=== PATIENT | male | born 1980 | race Caucasian/White ===

== ENCOUNTER 2017-10-06 02:08 | Emergency (ER) | payer SELFPAY ==
[2017-10-06] MEDS ORDERED: TETANUS AND DIPHTHERIA TOXOID 0.5 ML DISP.SYRIN IM ONE (02:32)
--- NOTE | 2017-10-06 02:32 | PDOC ---
History of Present Illness - General Stated Complaint: INJURY,LT HAND History Source: Patient Exam Limitations: No Limitations - History of Present Illness Initial Comments: 10/06/17 02:31 36-year-old male who is right hand dominant with no medical history presents to the emergency department complaining of a laceration to his left palm after he slipped and fell onto the outstretched of his left hand. Bleeding controlled with direct pressure. Patient denies extremity numbness or tingling sensation. Patient denies head injuries, neck/back pains. Patient denies any other injuries or complaints. Unknown last tetanus. Timing/Duration: other Past History - Past Medical History Allergies/Adverse Reactions: Allergies Allergy/AdvReac Type Severity Reaction Status Date / Time No Known Allergies Allergy Verified 10/06/17 02:43 *Physical Exam - Physical Exam Comments: 10/06/17 02:28 Left hand 3cm vertical partial thickness thenar laceration 2 Point discrimination intact cap refill <2sec F.R.O.M. Wrist: 2 radial Procedure: Left hand 3cm vertical partial thickness Betadine prep 1% lidocaine=4cc NS irrigation/copious (4) 5.0 nylon interrupted/simple bacitracin telfa Kerlix *DC/Admit/Observation/Transfer Diagnosis at time of Disposition: Hand laceration Qualifiers: Encounter type: initial encounter Foreign body presence: without foreign body Laterality: left Qualified Code(s): S61.412A - Laceration without foreign body of left hand, initial encounter - Discharge Dispostion Disposition: HOME Condition at time of disposition: Stable Admit: No - Referrals - Patient Instructions Printed Discharge Instructions: DI for Laceration Repair Additional Instructions: Keep the incision clean and dry for 24 hours. After 24 hours, you may allow the soap and water to rinse off your incision. Avoid direct pressure of the water to the incision. Pat the incision dry with a clean clothe. Apply a small amount of bacitracin onto the incision. Cover the incision loosely with a bandaid. Take tylenol/motrin as needed for pain. Follow up with your physician or the ER in 48 hours for a wound check. Return to the ER if you notice red streaks, increase redness/swelling/severe pain to the incision. Suture removal in 11-12 days. - Post Discharge Activity
[2017-10-06] MEDS ORDERED: LIDOCAINE HCL 2% (20ML MULTI-DOSE VIAL) NR ONE (02:44)
[2017-10-06 02:45] VITALS: BP 128/93; PULSE 61; TEMP 98; BMI 30.1
--- NOTE | 2017-10-06 03:28 | PDOC ---
*Physical Exam - Vital Signs Last Vital Signs Temp Pulse Resp BP Pulse Ox 98 F 61 14 128/93 97 10/06/17 02:44 10/06/17 02:44 10/06/17 02:44 10/06/17 02:44 10/06/17 02:44 Medical Decision Making - Medical Decision Making 10/06/17 03:28 Pt seen by the Advanced Practice Provider under my direct supervision Ancillary studies reviewed I agree with plan as outlined by the Advanced Practice Provider GURPREET Burgess *DC/Admit/Observation/Transfer Diagnosis at time of Disposition: Hand laceration Qualifiers: Encounter type: initial encounter Foreign body presence: without foreign body Laterality: left Qualified Code(s): S61.412A - Laceration without foreign body of left hand, initial encounter - Discharge Dispostion Disposition: HOME Condition at time of disposition: Stable - Referrals - Patient Instructions Printed Discharge Instructions: DI for Laceration Repair Additional Instructions: Keep the incision clean and dry for 24 hours. After 24 hours, you may allow the soap and water to rinse off your incision. Avoid direct pressure of the water to the incision. Pat the incision dry with a clean clothe. Apply a small amount of bacitracin onto the incision. Cover the incision loosely with a bandaid. Take tylenol/motrin as needed for pain. Follow up with your physician or the ER in 48 hours for a wound check. Return to the ER if you notice red streaks, increase redness/swelling/severe pain to the incision. Suture removal in 11-12 days. - Post Discharge Activity
== END 2017-10-06 03:52 | disposition home or self-care (01) ==
LOC: JER 02:08
PROC: 0HQGXZZ Repair Left Hand Skin, External Approach (ICD-10-PCS; principal; 2017-10-06)
PROC: 3E0234Z Introduction of Serum, Toxoid and Vaccine into Muscle, Percutaneous Approach (ICD-10-PCS; 2017-10-06)
DX: S61.412A Laceration without foreign body of left hand, initial encounter (principal); W01.0XXA Fall on same level from slipping, tripping and stumbling without subsequent striking against object, initial encounter; Y93.89 Activity, other specified; Y92.89 Other specified places as the place of occurrence of the external cause; Y99.8 Other external cause status
CPT/HCPCS: 99281-25